=== PATIENT | female | born 2000 | race American Indian/Alaskan Native ===

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

== ENCOUNTER 2018-01-28 14:28 | Emergency (ER) | payer MEDICAID ==
[2018-01-28] MEDS ORDERED: REGLAN IV ONE (16:42)
[2018-01-28] MEDS ORDERED: NACL 0.9% 1000 ML 1,000 ML IV ONE (16:42)
--- NOTE | 2018-01-28 16:43 | Emergency Department Report ---
ED HPI - General Chief complaint: Nausea/Vomiting/Diarrhea Stated complaint: NIV 3 DAYS Time Seen by Provider: 01/28/18 16:42 Source: patient Mode of arrival: Ambulatory Limitations: No Limitations - History of Present Illness Initial comments: This is a 17-year-old female nontoxic, well nourished in appearance, no acute signs of distress presents to the ED with c/o of nausea, vomiting, and pelvic pain x1 day. Patient denies upper abdominal pain, vaginal bleeding, or back pain. Patient denies any vaginal discharge or foul odor. Patient denies any chest pain, shortness of breathe, fever, chills, headache, stiff neck, numbness, tingling. Patient denies any urinary symptoms. Patient denies any allergies or PMH. MD Complaint: abdominal pain (pelvic pain), other (nausea/vomiting) -: days(s) (1) Location: pelvis Radiation: none Severity: mild Severity scale (0 -10): 3 Quality: cramping, aching Consistency: constant Improves with: none Worsens with: none Associated symptoms: nausea/vomiting, abdominal pain (pelvic pain). denies: vaginal bleeding, vaginal discharge, dysuria, headache, vision changes, malaise , dysparuenia, rash, seizure, shortness of breath, syncope, weakness Vaginal bleeding: none :: Yes - Related Data Previous Rx's Medication Instructions Recorded Last Taken Type Amoxicillin [Amoxicillin TAB] 875 mg PO BID #20 tablet 03/25/17 Unknown Rx Ibuprofen [Motrin] 800 mg PO Q8HR PRN #15 tablet 03/25/17 Unknown Rx Acetaminophen 500 mg PO Q8H PRN #30 tablet 01/28/18 Unknown Rx Metoclopramide [Reglan] 10 mg PO TID PRN #30 tab 01/28/18 Unknown Rx 21/Iron Fu/Folic Acid 1 each PO DAILY #30 tablet 01/28/18 Unknown Rx [ Complete Caplet] Allergies Allergy/AdvReac Type Severity Reaction Status Date / Time No Known Allergies Allergy Unverified 01/28/18 15:16 ED Review of Systems ROS: Stated complaint: NIV 3 DAYS Other details as noted in HPI Constitutional: denies: chills, fever Eyes: denies: eye pain, eye discharge, vision change ENT: denies: ear pain, throat pain Respiratory: denies: cough, shortness of breath, wheezing Cardiovascular: denies: chest pain, palpitations Endocrine: no symptoms reported Gastrointestinal: abdominal pain (pelvic), nausea, vomiting. denies: diarrhea, constipation Genitourinary: denies: urgency, dysuria, discharge Musculoskeletal: denies: back pain, joint swelling, arthralgia Skin: denies: rash, lesions Neurological: denies: headache, weakness, paresthesias Psychiatric: denies: anxiety, depression Hematological/Lymphatic: denies: easy bleeding, easy bruising ED Past Medical Hx - Past Medical History Hx Asthma: Yes - Surgical History Past Surgical History?: No - Social History Smoking Status: Never Smoker Substance Use Type: None - Medications Home Medications: Home Medications Medication Instructions Recorded Confirmed Last Taken Type Amoxicillin [Amoxicillin TAB] 875 mg PO BID #20 tablet 03/25/17 Unknown Rx Ibuprofen [Motrin] 800 mg PO Q8HR PRN #15 tablet 03/25/17 Unknown Rx Acetaminophen 500 mg PO Q8H PRN #30 tablet 01/28/18 Unknown Rx Metoclopramide [Reglan] 10 mg PO TID PRN #30 tab 01/28/18 Unknown Rx 21/Iron Fu/Folic Acid 1 each PO DAILY #30 tablet 01/28/18 Unknown Rx [ Complete Caplet] ED Physical Exam - General Limitations: No Limitations General appearance: alert, in no apparent distress - Head Head exam: Present: atraumatic, normocephalic - Eye Eye exam: Present: normal appearance Pupils: Present: normal accommodation - ENT ENT exam: Present: normal exam, mucous membranes moist - Neck Neck exam: Present: normal inspection, full ROM. Absent: tenderness, meningismus, lymphadenopathy - Respiratory Respiratory exam: Present: normal lung sounds bilaterally. Absent: respiratory distress, wheezes, rales, rhonchi, stridor, chest wall tenderness, accessory muscle use, decreased breath sounds, prolonged expiratory - Cardiovascular Cardiovascular Exam: Present: regular rate, normal rhythm, normal heart sounds. Absent: irregular rhythm, systolic murmur, diastolic murmur, rubs, gallop - GI/Abdominal GI/Abdominal exam: Present: soft, normal bowel sounds. Absent: distended, tenderness, guarding, rebound, rigid, diminished bowel sounds - Expanded GI/Abdominal Exam Expanded GI/Abdominal exam: Absent: psoas sign, obturator sign, heel tap sign, Zepeda's sign, Rovsing's sign, tenderness at Mcburney's Point, ascites - Rectal Rectal exam: Present: deferred - Extremities Exam Extremities exam: Present: normal inspection, full ROM, normal capillary refill. Absent: tenderness - Back Exam Back exam: Present: normal inspection, full ROM. Absent: tenderness, CVA tenderness (R), CVA tenderness (L), muscle spasm, paraspinal tenderness, vertebral tenderness, rash noted - Neurological Exam Neurological exam: Present: alert, oriented X3, normal gait - Psychiatric Psychiatric exam: Present: normal affect, normal mood - Skin Skin exam: Present: warm, dry, intact, normal color. Absent: rash ED Course Vital Signs 01/28/18 15:16 Temperature 99.5 F Pulse Rate 91 H Respiratory 16 Rate Blood Pressure 110/66 O2 Sat by Pulse 100 Oximetry - Reevaluation(s) Reevaluation #1: 01/28/18 17:34 Patient is speaking in full sentences with no signs of distress noted. ED Medical Decision Making - Lab Data Result diagrams: 01/28/18 17:06 01/28/18 17:06 - Medical Decision Making This is a 17-year-old female presents with hyperemesis and pelvic pain. Patient is stable and was examined by me. Normal abdominal exam. US OB obtained and dictated by the radiologist with single normal IUP 6 weeks. Ua obtained. Quantative serum test obtained. Patient notified of the US report with no questions noted by the patient. No vaginal bleeding. Labs within normal limits. Patient received 1 D5NS and reglan which pateint stated feels much better. A by mouth challenge has been obtained and patient tolerated well with no nausea vomiting. Patient discharged with , Tylenol and Reglan. Patient was referred to Follow-up with a [facility] in 3-5 days or if symptoms worsen and continue return to emergency room as soon as possible. At time of discharge, the patient does not seem toxic or ill in appearance. No acute signs of distress noted. Patient agrees to discharge treatment plan of care. No further questions noted by the patient. Critical care attestation.: If time is entered above; I have spent that time in minutes in the direct care of this critically ill patient, excluding procedure time. ED Disposition Clinical Impression: Hyperemesis gravidarum, Pelvic pain during Disposition: TO HOME OR SELFCARE Is pt being admited?: No Does the pt Need Aspirin: No Condition: Stable Instructions: (ED), Hyperemesis Gravidarum (ED) Additional Instructions: Follow-up with a [facility] Ddoctor in 3-5 days or if symptoms worsen and continue return to emergency room as soon as possible. Prescriptions: Acetaminophen 500 mg PO Q8H PRN #30 tablet PRN Reason: Pain, Moderate (4-6) Metoclopramide [Reglan] 10 mg PO TID PRN #30 tab PRN Reason: Nausea 21/Iron Fu/Folic Acid [ Complete Caplet] 1 each PO DAILY #30 tablet Referrals: PRIMARY CAREMD [Primary Care Provider] - 3-5 Days WASHINGTON SAUL MD [Staff Physician] - 3-5 Days [facility] [Provider Group] - 3-5 Days Forms: Work/School Release Form(ED)
[2018-01-28 17:24] LABS: Basophils % (Auto) 0.3 % (0.0-1.8); Eosinophils % (Auto) 0.3 % (0.0-4.3); Hemoglobin 12.6 gm/dl (10.1-14.3); Lymphocytes # (Auto) 2.2 K/mm3 (1.2-5.4); Lymphocytes % (Auto) 26.2 % (13.4-35.0); Mean Corpuscular HGB Conc 34 % (30-34); Mean Corpuscular Hemoglobin 28 pg (28-32); Mean Corpuscular Volume 83 fl (79-97); Monocytes # (Auto) 0.6 K/mm3 (0.0-0.8); Platelet Count 301 K/mm3 (140-440); Red Blood Count 4.47 M/mm3 (3.65-5.03); Red Cell Distribution Width 15.1 % (13.2-15.2)
[2018-01-28 17:35] LABS: BUN/Creatinine Ratio 13; Blood Urea Nitrogen 8 mg/dL (7-17); Calcium 9.8 mg/dL (8.4-10.2); Hemolysis Index 2
[2018-01-28] MEDS ORDERED: D5NS 1,000 ML IV ONE (17:39)
[2018-01-28 20:05] LABS: Bacteria,Urine 1+ /HPF (Negative); Bilirubin,Urine NEG (Negative); Blood,Urine NEG (Negative); Color,Urine Yellow (Yellow); Mucus,Urine FEW /HPF; Urobilinogen,Urine < 2.0 mg/dL (<2.0)
--- NOTE | 2018-01-28 20:48 | Ultrasound Report ---
FINAL REPORT PROCEDURE: US OB < = 14 WEEKS FETUS TECHNIQUE: Real-time transabdominal sonography of the uterus, placenta, amniotic fluid, adnexa, and fetus was performed with image documentation. Measurements were obtained to determine age/size. M-mode Doppler was used to document heartbeat. CPT 16854 HISTORY: abd pain COMPARISON: No prior studies are available for comparison. FINDINGS: CRL: 15.2 mm, which corresponds to a gestational age of: 7 weeks, 6 days. Yolk Sac: Normal. Embryonic Cardiac Activity: 166 beats per minute, regular Gestational Sac: Normal. Amniotic fluid: Normal. Cervix: Normal. Right Ovary: Normal. Left Ovary: Normal. Estimated delivery date: 09/08/2018 Uterus and adnexa: Normal. IMPRESSION: Single live intrauterine gestation at approximately 8 weeks and 3 days. EDC by US 09/08/2018
--- NOTE | 2018-01-28 20:49 | Ultrasound Report ---
FINAL REPORT PROCEDURE: US OB TRANSVAGINAL TECHNIQUE: Real-time transvaginal sonography of the uterus, placenta, amniotic fluid, adnexa, and fetus was performed with image documentation. Measurements were obtained to determine age/size. M-mode Doppler was used to document heartbeat. CPT 52168 HISTORY: abd pain COMPARISON: No prior studies are available for comparison. FINDINGS: CRL: 15.2 mm, which corresponds to a gestational age of: 7 weeks, 6 days. Yolk Sac: Normal. Embryonic Cardiac Activity: 166 beats per minute, regular Gestational Sac: Normal. Amniotic fluid: Normal. Cervix: Normal. Right Ovary: Normal. Left Ovary: Normal. Estimated delivery date: 09/08/2018 Uterus and adnexa: Normal. IMPRESSION: Single live intrauterine gestation at approximately 8 weeks and 3 days. EDC by US 09/08/2018
[2018-01-28 20:50] VITALS: BP 97/58
== END 2018-01-28 22:00 | disposition home or self-care (01) ==
LOC: ED 14:28
DX: O21.0 Mild hyperemesis gravidarum (principal); O99.511 Diseases of the respiratory system complicating pregnancy, first trimester; J45.909 Unspecified asthma, uncomplicated; Z3A.01 Less than 8 weeks gestation of pregnancy
CPT/HCPCS: 36415; 76801; 76817; 80048; 81001; 84702; 85025; 96361; 96365; 96375; 99284; J2765; J7030; J7042

== ENCOUNTER 2018-02-08 23:39 | Inpatient (IN) | payer MEDICAID ==
[2018-02-09] MEDS ORDERED: PROVENTIL IH ONE ×4 (02:11→20:46)
[2018-02-09 02:49] LABS: Basophils % (Auto) 0.3 % (0.0-1.8); Eosinophils # (Auto) 0.5 K/mm3 (0.0-0.4); Eosinophils % (Auto) 4.2 % (0.0-4.3); Hematocrit 40.7 % (30.3-42.9); Hemoglobin 14.3 gm/dl (10.1-14.3); Lymphocytes % (Auto) 27.8 % (13.4-35.0); Mean Corpuscular HGB Conc 35 % (30-34); Mean Corpuscular Hemoglobin 28 pg (28-32); Mean Corpuscular Volume 79 fl (79-97); Monocytes # (Auto) 1.1 K/mm3 (0.0-0.8); Monocytes % (Auto) 9.7 % (0.0-7.3); Platelet Count 250 K/mm3 (140-440); Red Blood Count 5.15 M/mm3 (3.65-5.03); Red Cell Distribution Width 15.4 % (13.2-15.2)
[2018-02-09 03:05] LABS: BUN/Creatinine Ratio 20; Blood Urea Nitrogen 16 mg/dL (7-17); Calcium 10.2 mg/dL (8.4-10.2); Hemolysis Index 10
[2018-02-09] MEDS ORDERED: NACL 0.9% 1000 ML 1,000 ML IV ONE ×3 (03:34→10:18)
[2018-02-09] MEDS ORDERED: REGLAN IV ONE (03:43)
--- NOTE | 2018-02-09 03:49 | Emergency Department Report ---
HPI - General Chief Complaint: Nausea/Vomiting/Diarrhea Time Seen by Provider: 02/09/18 03:33 - HPI HPI: Room 3 The patient is a 17-year-old female presenting with a chief complaint of cough, asthma, nausea and vomiting. Patient is approximately 8 weeks and states for 1.5 week she's had pain across top and lower abdomen. Patient denies vaginal bleeding. The patient states for the past 2-3 weeks she has been suffering from her asthma as well as a cough that is productive of greenish yellow sputum. Patient complains of nausea and vomiting as well as dizziness with standing. Location: [See above] Duration: 2-3 weeks Quality: Pain, asthma, cough Severity: Moderate Modifying factors: [see above] Context: [see above] Mode of transportation: [not driving] ED Past Medical Hx - Past Medical History Hx Asthma: Yes - Surgical History Past Surgical History?: No - Family History Family history: no significant - Social History Smoking Status: Never Smoker Substance Use Type: None - Medications Home Medications: Home Medications Medication Instructions Recorded Confirmed Last Taken Type Amoxicillin [Amoxicillin TAB] 875 mg PO BID #20 tablet 03/25/17 02/09/18 Unknown Rx Ibuprofen [Motrin] 800 mg PO Q8HR PRN #15 tablet 03/25/17 02/09/18 Unknown Rx Acetaminophen 500 mg PO Q8H PRN #30 tablet 01/28/18 02/09/18 Unknown Rx Metoclopramide [Reglan] 10 mg PO TID PRN #30 tab 01/28/18 02/09/18 Unknown Rx 21/Iron Fu/Folic Acid 1 each PO DAILY #30 tablet 01/28/18 02/09/18 Unknown Rx [ Complete Caplet] ALBUTEROL Inhaler [Proair] 2 puff IH QID PRN #1 inhalation 02/09/18 Unknown Rx Azithromycin [Zithromax Z-RICARDO] 0 mg PO DAILY #6 tab 02/09/18 Unknown Rx Metoclopramide [Reglan] 10 mg PO TID PRN #30 tab 02/09/18 Unknown Rx ED Review of Systems ROS: Stated complaint: AZALIA/NV/8WKS Other details as noted in HPI Constitutional: no symptoms reported Eyes: denies: eye pain ENT: denies: throat pain Respiratory: cough, wheezing Cardiovascular: denies: chest pain Endocrine: no symptoms reported Gastrointestinal: abdominal pain, nausea, vomiting Genitourinary: denies: dysuria Musculoskeletal: denies: back pain Neurological: denies: headache Physical Exam - Physical Exam Vital Signs: Vital Signs 02/09/18 02/09/18 01:57 02:50 Temperature 99 F 98.7 F Pulse Rate 104 H 105 H Respiratory 18 28 H Rate Blood Pressure 112/78 Blood Pressure 105/76 [Left] O2 Sat by Pulse 100 100 Oximetry Physical Exam: GENERAL: The patient is well-developed well-nourished female lying on stretcher not appearing to be in acute distress. [] HEENT: Normocephalic. Atraumatic. Extraocular motions are intact. Patient has moist mucous membranes. NECK: Supple. Trachea midline CHEST/LUNGS: Occasional wheezing. There is no respiratory distress noted. HEART/CARDIOVASCULAR: Regular. There is no tachycardia. There is no gallop rub or murmur. ABDOMEN: Abdomen is soft, with mild discomfort to palpation in the midepigastric region. Patient has normal bowel sounds. There is no abdominal distention. SKIN: There is no rash. There is no edema. There is no diaphoresis. NEURO: The patient is awake, alert, and oriented. The patient is cooperative. The patient has normal speech MUSCULOSKELETAL: There is no evidence of acute injury. ED Course Vital Signs 02/09/18 02/09/18 01:57 02:50 Temperature 99 F 98.7 F Pulse Rate 104 H 105 H Respiratory 18 28 H Rate Blood Pressure 112/78 Blood Pressure 105/76 [Left] O2 Sat by Pulse 100 100 Oximetry ED Medical Decision Making - Lab Data Result diagrams: 02/09/18 02:26 02/09/18 08:37 - EKG Data -: EKG Interpreted by Me EKG shows normal: sinus rhythm Rate: normal - EKG Data When compared to previous EKG there are: previous EKG unavailable Interpretation: other (no ischemic changes seen) - Differential Diagnosis asthma exacerbation, threatened , bronchitis, hyperemesis gravidaru Critical care attestation.: If time is entered above; I have spent that time in minutes in the direct care of this critically ill patient, excluding procedure time. ED Disposition Clinical Impression: Acute bronchitis, Asthma exacerbation, Hyperemesis gravidarum Disposition: - OP ADMIT IP TO THIS HOSP Is pt being admited?: Yes Does the pt Need Aspirin: No Condition: Fair
[2018-02-09] MEDS ORDERED: K-DUR PO ONE ×2 (03:50→09:28)
--- NOTE | 2018-02-09 07:18 | Ultrasound Report ---
FINAL REPORT EXAM: US OB < = 14 WEEKS FETUS HISTORY: abdominal pain COMPARISONS: 01/28/2018 FINDINGS: Transabdominal grayscale and M-mode first-trimester ultrasound There is a single living intrauterine with recorded cardiac activity of 178 beats per minute and crown-rump length of 28 millimeters. Estimated gestational age is 9 weeks 3 days. The normal appearing yolk sac. No perigestational hemorrhage. No significant free fluid in the pelvis. The ovaries are best visualized on transvaginal ultrasound. IMPRESSION: Single living intrauterine without evident complication and estimated gestational age of 9 weeks 3 days, as above.
--- NOTE | 2018-02-09 07:19 | Ultrasound Report ---
FINAL REPORT EXAM: US OB TRANSVAGINAL HISTORY: abdominal pain COMPARISONS: 01/28/2018 FINDINGS: Transvaginal grayscale and M-mode first-trimester ultrasound There is a single living intrauterine with recorded cardiac activity of 178 beats per minute and crown-rump length of 28 millimeters. Estimated gestational age is 9 weeks 3 days. There is a normal appearing yolk sac. No perigestational hemorrhage. No significant free fluid in the pelvis. The ovaries are sonographically unremarkable and measure 1.7 x 1 x 1.5 cm on the right and 2.6 X 1.4 x 1.9 cm on the left. IMPRESSION: Single living intrauterine without evident complication and estimated gestational age of 9 weeks 3 days, as above.
[2018-02-09 07:39] LABS: Bacteria,Urine 1+ /HPF (Negative); Bilirubin,Urine NEG (Negative); Blood,Urine NEG (Negative); Color,Urine Amber (Yellow); Mucus,Urine 3+ /HPF
[2018-02-09 09:19] LABS: BUN/Creatinine Ratio 23; Blood Urea Nitrogen 14 mg/dL (7-17); Calcium 9.2 mg/dL (8.4-10.2); Hemolysis Index 5
[2018-02-09] MEDS ORDERED: ROCEPHIN/NS 1 GM/50 ML 1 GM/50 ML BAG IV ONE (09:41)
[2018-02-09] MEDS ORDERED: D5W/NS W/KCL 20MEQ 20 MEQ/1,000 ML BAG IV SCH (10:00)
[2018-02-09] MEDS ORDERED: NACL 0.9% 1000 ML 1,000 ML ONE (10:09)
[2018-02-09 10:47] LABS: Albumin 3.9 g/dL (3.9-5); Bilirubin,Direct 0.3 mg/dL (0-0.2)
[2018-02-09 11:30] LABS: INR 1.4 (0.87-1.13)
--- NOTE | 2018-02-09 11:36 | XRay Report ---
FINAL REPORT EXAM: XR CHEST 1V AP HISTORY: cough TECHNIQUE: Frontal chest radiograph. PRIORS: None. FINDINGS: The cardiomediastinal silhouette is normal. No focal consolidation. No pleural effusion. No pneumothorax. No acute osseous abnormality. IMPRESSION: No acute cardiopulmonary process.
[2018-02-09] MEDS ORDERED: D5LR 1,000 ML IV SCH ×2 (12:00)
--- NOTE | 2018-02-09 12:14 | Event Note ---
Date: 02/09/18 This is a patient that was seen by Dr. Rock during the night. She has residual concerns to include hypokalemia, low CO2 and a pending ultrasound. She is being followed by light cycle [facility] PR[facility] OPERATOR. The patient is fairly reticent to give much history when I speak to her. She is not complaining of any acute pain. She was noted to have a somewhat low blood pressure. She was given additional fluids. I evaluated her further. Physical exam Patient's blood pressure is now 113/67 approximately. She is in no acute distress. Respirations are unlabored Neurological exam is grossly intact Abdomen is soft and nontender Diagnostic studies Patient was found to have a significant metabolic acidosis. I had a blood gas performed. It shows well compensated metabolic acidosis/respiratory compensation. Her CO2 was a point lower. Her potassium was a point lower. I ordered a magnesium level. The lab has been informed. Patient was given additional IV fluid. Her lactic acid level was normal. She does have ketones in her urine. Therefore she does need dextrose-containing solution. She is not actively vomiting anymore. She tolerated additional potassium. Her potassium deficit may be large considering her acidosis. Therefore for this and several reasons she is admitted for further care and evaluation by [facility]. I spoken to the nurse practitioner. She is admitted to Dr. Shipman service. Ceftriaxone was ordered. Diagnostic impressions Hyperemesis gravidarum Hypokalemia Metabolic acidosis UTI Plan further care per [facility] PR[facility] OPERATOR. Patient was admitted to the floor in stable condition.
--- NOTE | 2018-02-09 15:26 | Event Note ---
Date: 02/09/18 Patient is a 17 year old , LMP?, who is at 9 weeks gestation who presented to the ER last night complaining of having nausea and vomiting for 2 weeks and inability to tolerate PO intake, and persistent cough with yellow sputum x 2 weeks. She said that she felt chills, but her temp in the ER was normal. She said that she has a history of asthma but can't recall the last time she had an attack. She has not been taking any medication for the asthma. In the ER, her BP 112/78, HR 104, O2 Sat 100% RA, Temp was 99F, potassium 2.9. K = was given. Labs showed metabolic acidosis. CXR was negative. She was given zithromax. sono showed live SIUP. Exam:Chest clear B/L. Assessment/Plan: SIUP at 9 weeks with: .Hyperemesis. Will contiue IV hyrdation, NPO, Zofran. .Hypokalemia. K-emily was given. current K+ is 3.2. Will give 2 more doses and repeat level in AM. .Metabolic acidosis. Will continue electrolyte replacement as needed. Will continue albuterol nebs treatment Q8 hrs. .Respiratory illness, possible bronchitis vs. walking pneumonia. Zosyn Q8 hrs. .UTI. Will F/U urine cx. .
[2018-02-09] MEDS: PHENERGAN PR SCH (18:00)
[2018-02-09] MEDS: D5NS 1,000 ML IV SCH (22:04)
[2018-02-09] MEDS: ZOSYN/NS 3.375GM/50ML 3.375 GM/50 ML BAG IV SCH (22:04)
[2018-02-10] MEDS: PHENERGAN PR SCH ×4 (01:11→18:39)
[2018-02-10 05:24] LABS: Amphetamine Screen,Urine PRESUMPTIVE NEGATIVE; Benzodiazepines Screen,Urine PRESUMPTIVE NEGATIVE; Cannabinoid Screen,Urine PRESUMPTIVE NEGATIVE; Cocaine Screen,Urine PRESUMPTIVE NEGATIVE; Methadone Screen,Urine PRESUMPTIVE NEGATIVE; Opiate Screen,Urine PRESUMPTIVE NEGATIVE
[2018-02-10] MEDS: ZOSYN/NS 3.375GM/50ML 3.375 GM/50 ML BAG IV SCH ×3 (06:35→22:11)
[2018-02-10] MEDS: PROVENTIL IH SCH ×2 (08:44→16:59)
[2018-02-10] MEDS: D5NS 1,000 ML IV SCH ×2 (10:27→22:15)
[2018-02-10] MEDS: ZOFRAN IV PRN ×2 (10:36→16:34)
[2018-02-10] MEDS: PRENATAL VITAMIN PO SCH (10:37)
[2018-02-10 11:28] LABS: Alanine Aminotransferase 27 units/L (7-56); Albumin 3.3 g/dL (3.9-5); BUN/Creatinine Ratio 7; Blood Urea Nitrogen 5 mg/dL (7-17); Calcium 8.6 mg/dL (8.4-10.2); Hemolysis Index 1
--- NOTE | 2018-02-10 12:34 | History and Physical Report ---
History of Present Illness Date of examination: 02/10/18 Date of admission: 02/09/18 09:41 Chief complaint: SIUP at 9 weeks, hyperemesis, hypokalemia, upper resp illness. History of present illness: Patient was admitted for observation yesterday. She is a 17 year old who at 9 weeks gestation. She presented to the ER with nausea, vomiting with inability to keep PO intake, productive cough x 2 weeks. Her labs showed metabolic acidosis, low K+, ketones and UTI. She was treated with zithromax, albuterol, reglan, potassium replacement, IV hydration. Zosyn was added. She was kept for observation. She is feeling better but is still vomiting when she tries to drink or eat. Potassium is 2.8 today. Past History Past Medical History: asthma Past Surgical History: no surgical history Medications and Allergies Allergies Allergy/AdvReac Type Severity Reaction Status Date / Time No Known Allergies Allergy Unverified 01/28/18 15:16 Home Medications Medication Instructions Recorded Confirmed Last Taken Type Amoxicillin [Amoxicillin TAB] 875 mg PO BID #20 tablet 03/25/17 02/09/18 Unknown Rx Ibuprofen [Motrin] 800 mg PO Q8HR PRN #15 tablet 03/25/17 02/09/18 Unknown Rx Acetaminophen 500 mg PO Q8H PRN #30 tablet 01/28/18 02/09/18 Unknown Rx Metoclopramide [Reglan] 10 mg PO TID PRN #30 tab 01/28/18 02/09/18 Unknown Rx 21/Iron Fu/Folic Acid 1 each PO DAILY #30 tablet 01/28/18 02/09/18 Unknown Rx [ Complete Caplet] ALBUTEROL Inhaler [Proair] 2 puff IH QID PRN #1 inhalation 02/09/18 Unknown Rx Azithromycin [Zithromax Z-RICRADO] 0 mg PO DAILY #6 tab 02/09/18 Unknown Rx Metoclopramide [Reglan] 10 mg PO TID PRN #30 tab 02/09/18 Unknown Rx Active Meds: Active Medications Albuterol (Proventil) 2.5 mg IH Q8HRT [facility] Last Admin: 02/10/18 08:44 Dose: 2.5 mg Dextrose/Sodium Chloride (D5ns) 1,000 mls @ 150 mls/hr IV DIRECT MACY Last Admin: 02/10/18 10:27 Dose: 150 mls/hr Piperacillin Sod/Tazobactam Sod (Zosyn/Ns 3.375gm/50ml) 3.375 gm in 50 mls @ 100 mls/hr IV Q8HR [facility]; Protocol Last Admin: 02/10/18 06:35 Dose: 100 mls/hr Potassium Chloride (Kcl 10meq/100ml) 10 meq in 100 mls @ 100 mls/hr IV Q1H MACY Stop: 02/10/18 16:59 Multivitamins/Iron/Calcium ( Vitamin) 1 each PO QDAY [facility] Last Admin: 02/10/18 10:37 Dose: Not Given Ondansetron HCl (Zofran) 4 mg IV Q6H PRN PRN Reason: N/V unrelieved by Ruy Last Admin: 02/10/18 10:36 Dose: 4 mg Promethazine HCl (Phenergan) 25 mg RI Q6H [facility] Last Admin: 02/10/18 06:00 Dose: Not Given - Vital Signs Vital signs: Vital Signs Temp Pulse Resp BP Pulse Ox 99 F 104 H 18 112/78 100 02/09/18 01:57 02/09/18 01:57 02/09/18 01:57 02/09/18 01:57 02/09/18 01:57 Temp Pulse Resp BP Pulse Ox 98.6 F 92 H 12 114/78 100 02/10/18 07:14 02/10/18 08:48 02/10/18 08:48 02/10/18 07:14 02/09/18 16:11 - Physical Exam Cardiovascular: Normal S1, Normal S2 Lungs: Positive: Clear to auscultation Vulva: both: normal Deep Tendon Reflex Grade: Normal +2 Results Result Diagrams: 02/09/18 02:26 02/10/18 10:23 Abnormal lab results 02/10/18 Range/Units 10:23 Potassium 2.8 L* (3.6-5.0) mmol/L Chloride 107.5 H (98-107) mmol/L Carbon Dioxide 15 L (22-30) mmol/L BUN 5 L (7-17) mg/dL Glucose 109 H (65-100) mg/dL Total Bilirubin 1.60 H (0.1-1.2) mg/dL AST 42 H (5-40) units/L Total Protein 5.9 L (6.3-8.2) g/dL Albumin 3.3 L (3.9-5) g/dL All other labs normal. Ultrasound: report reviewed Chest x-ray: report reviewed Assessment and Plan - Patient Problems (1) 9 weeks gestation of Current Visit: Yes Status: Acute (2) Hyperemesis gravidarum Current Visit: Yes Status: Acute Plan to address problem: Continue IV zofran, IV fluids. (3) Hypokalemia Current Visit: Yes Status: Acute Plan to address problem: K-emily ordered. will do potassium level tonight. (4) Respiratory illness Current Visit: Yes Status: Acute Plan to address problem: Will continue zosyn Q8 hrs and albuterol nebulizer. Blood Cx is negative on day#1. Will F/U result tomorrow. (5) UTI (urinary tract infection) Current Visit: Yes Status: Acute Plan to address problem: F/U urine Cx. (6) Asthma exacerbation Current Visit: Yes Status: Acute Plan to address problem: Continue albuterol nebs.
[2018-02-10] MEDS: KCL 10MEQ/100ML 10 MEQ/100 ML BAG IV SCH ×4 (13:11→18:39)
[2018-02-10] MEDS: PEPCID IV SCH (16:59)
[2018-02-11] LABS: Alanine Aminotransferase 28 units/L (7-56); Albumin 3.5 g/dL (3.9-5); BUN/Creatinine Ratio 5; Blood Urea Nitrogen 4 mg/dL (7-17); Calcium 8.7 mg/dL (8.4-10.2); Hemolysis Index 8
[2018-02-11] MEDS: ZOFRAN IV PRN ×3 (00:01→11:47)
[2018-02-11] MEDS: KCL 10MEQ/100ML 10 MEQ/100 ML BAG IV SCH ×4 (01:53→05:10)
[2018-02-11] MEDS: PHENERGAN PR SCH ×3 (06:00→11:45)
[2018-02-11] MEDS: ZOSYN/NS 3.375GM/50ML 3.375 GM/50 ML BAG IV SCH ×3 (06:24→22:00)
[2018-02-11 08:21] LABS: Alanine Aminotransferase 23 units/L (7-56); Albumin 3.3 g/dL (3.9-5); BUN/Creatinine Ratio 4; Blood Urea Nitrogen 3 mg/dL (7-17); Calcium 8.4 mg/dL (8.4-10.2); Hemolysis Index 7
[2018-02-11] MEDS: PEPCID IV SCH (09:48)
[2018-02-11] MEDS: PRENATAL VITAMIN PO SCH (09:48)
[2018-02-11] MEDS: PROVENTIL IH SCH ×4 (10:05→16:03)
[2018-02-11] MEDS: D5NS 1,000 ML IV SCH (13:23)
--- NOTE | 2018-02-11 13:24 | Progress Note ---
Assessment and Plan - Patient Problems (1) Hyperemesis gravidarum Current Visit: Yes Status: Acute Plan to address problem: Continue Zofran. Will call pharmacy to see if banana bag available. (2) Hypokalemia Current Visit: Yes Status: Acute Plan to address problem: K = 3.2 this morning. Give K-dur 40 mEq. Recheck potassium in PM. Per nurse patient unable to tolerate PO will give KCl added to 1L IVF. (3) Trichimoniasis Current Visit: Yes Status: Acute Plan to address problem: Will treat with Flagyl. Subjective - Subjective Interval history: Hospital Day #2 17yo 9 week gestation with hyperemsis gravidarum. Today is vomiting food colored fluid and very little solid food. She denies vaginal bleeding. Overview of her chart states she has been non-compliant with care and untreated for Trichimonas. Ultrasound 01/24 reveals 7 week IUP in office. Objective - Vital Signs Vital Signs: Vital Signs - 12hr 02/11/18 02/11/18 02/11/18 01:50 04:50 08:58 Temperature 98.5 F 98.6 F 98.7 F Pulse Rate 81 84 80 Pulse Rate [ Anterior Bilateral] Respiratory 18 16 20 Rate Respiratory Rate [Anterior Bilateral] Blood Pressure 92/42 Blood Pressure 90/57 103/60 [Left] O2 Sat by Pulse 99 Oximetry 02/11/18 02/11/18 10:06 10:21 Temperature Pulse Rate Pulse Rate [ 81 84 Anterior Bilateral] Respiratory Rate Respiratory 18 18 Rate [Anterior Bilateral] Blood Pressure Blood Pressure [Left] O2 Sat by Pulse Oximetry - Labs Labs: Abnormal Labs 02/09/18 02/09/18 02/09/18 02:26 02:26 02:26 RBC 5.15 H MCHC 35 H RDW 15.4 H [place] % (Auto) 9.7 H [place] # 1.1 H Eos # 0.5 H PT INR D-Dimer POC ABG pCO2 POC ABG pO2 VBG pH Sodium 135 L Potassium 3.2 L Chloride 94.1 L Carbon Dioxide 14 L BUN Creatinine Glucose Total Bilirubin Direct Bilirubin AST Total Protein Albumin HCG, Quant 90287 H Urine WBC (Auto) U Epithel Cells (Auto) 02/09/18 02/09/18 02/09/18 06:58 08:37 08:37 RBC MCHC RDW [place] % (Auto) Storey # Eos # PT INR D-Dimer POC ABG pCO2 POC ABG pO2 VBG pH 7.250 L Sodium 136 L Potassium 2.9 L* Chloride 96.4 L Carbon Dioxide 13 L BUN Creatinine 0.6 L Glucose Total Bilirubin Direct Bilirubin AST Total Protein Albumin HCG, Quant Urine WBC (Auto) 34.0 H U Epithel Cells (Auto) 25.0 H 02/09/18 02/09/18 02/09/18 09:40 09:40 09:52 RBC MCHC RDW [place] % (Auto) Storey # Eos # PT 17.7 H INR 1.40 H D-Dimer POC ABG pCO2 20.8 L POC ABG pO2 117 H VBG pH Sodium Potassium Chloride Carbon Dioxide BUN Creatinine Glucose Total Bilirubin Direct Bilirubin 0.3 H AST Total Protein Albumin HCG, Quant Urine WBC (Auto) U Epithel Cells (Auto) 02/10/18 02/10/18 02/10/18 10:23 17:53 23:10 RBC MCHC RDW [place] % (Auto) Storey # Eos # PT INR D-Dimer 514.4 H POC ABG pCO2 POC ABG pO2 VBG pH Sodium 135 L Potassium 2.8 L* 2.8 L* Chloride 107.5 H Carbon Dioxide 15 L 17 L BUN 5 L 4 L Creatinine Glucose 109 H Total Bilirubin 1.60 H Direct Bilirubin AST 42 H Total Protein 5.9 L 5.7 L Albumin 3.3 L 3.5 L HCG, Quant Urine WBC (Auto) U Epithel Cells (Auto) 02/11/18 07:31 RBC MCHC RDW [place] % (Auto) Storey # Eos # PT INR D-Dimer POC ABG pCO2 POC ABG pO2 VBG pH Sodium 136 L Potassium 3.3 L Chloride 108.5 H Carbon Dioxide 14 L BUN 3 L Creatinine Glucose Total Bilirubin Direct Bilirubin AST Total Protein 5.9 L Albumin 3.3 L HCG, Quant Urine WBC (Auto) U Epithel Cells (Auto) Laboratory Results - last 24 hr 02/10/18 02/10/18 02/10/18 14:30 17:53 23:10 D-Dimer 514.4 H Sodium 135 L Potassium 2.8 L* Chloride 103.4 Carbon Dioxide 17 L Anion Gap 17 BUN 4 L Creatinine 0.8 Estimated GFR > 60 BUN/Creatinine Ratio 5 Glucose 95 Calcium 8.7 Total Bilirubin 1.10 AST 38 ALT 28 Alkaline Phosphatase 80 Total Protein 5.7 L Albumin 3.5 L Albumin/Globulin Ratio 1.6 Urine Ketones 20 02/10/18 02/11/18 23:41 07:31 D-Dimer Sodium 136 L Potassium 3.3 L Chloride 108.5 H Carbon Dioxide 14 L Anion Gap 17 BUN 3 L Creatinine 0.8 Estimated GFR > 60 BUN/Creatinine Ratio 4 Glucose 84 Calcium 8.4 Total Bilirubin 1.10 AST 29 ALT 23 Alkaline Phosphatase 74 Total Protein 5.9 L Albumin 3.3 L Albumin/Globulin Ratio 1.3 Urine Ketones Neg
[2018-02-11] MEDS ORDERED: K-DUR PO NR (13:30)
[2018-02-11] MEDS ORDERED: K-DUR PO ONE (16:53)
[2018-02-11] MEDS ORDERED: D5W/0.45% NACL/KCL 20 MEQ 20 MEQ/1,000 ML BAG IV SCH (18:00)
[2018-02-11 18:59] LABS: BUN/Creatinine Ratio 3; Blood Urea Nitrogen 2 mg/dL (7-17); Calcium 8.7 mg/dL (8.4-10.2); Hemolysis Index 1
[2018-02-11] MEDS ORDERED: ROBITUSSIN PO PRN (19:59)
[2018-02-11] MEDS ORDERED: VITAMIN B-1 100 MG, FOLVITE 1 MG, INFUVITE 10 ML in NACL 0.9% 1000 ML 1,000 ML IV ONE (22:00)
[2018-02-11] MEDS ORDERED: TYLENOL PO PRN (23:26)
[2018-02-11] MEDS ORDERED: BENADRYL PO PRN (23:29)
[2018-02-12] MEDS: ZOSYN/NS 3.375GM/50ML 3.375 GM/50 ML BAG IV SCH (06:10)
[2018-02-12] MEDS: PROVENTIL IH SCH (08:20)
--- NOTE | 2018-02-12 09:13 | Progress Note ---
Assessment and Plan A: 17 y/o with N/V of Issues -Hx of Asthma -Hypokalemia -NO reported weight loss -No fever or chills -Tolerating oral intake P: -D/C Zosyn -Oral KCL 40 meq PO now -Complete IV KCL and repeat serum K later this PM -Start oral anti-emetics and saline lock -Discussed Diclegis on outpatient basis -Possible D/C if serum K acceptable - Patient Problems (1) 9 weeks gestation of Current Visit: Yes Status: Acute (2) Nausea and vomiting during Current Visit: Yes Status: Acute Subjective - Subjective Date of service: 02/12/18 Principal diagnosis: t Interval history: Patient seen and examined. She is stable. She has an almost flat effect, denies depression, suicidal thoughts or ideation. She denies any issues at home and wants to know when she can go - "I feel fine, all I need is my asthma meds". During my ~ 30 min in her room, she had no episode of nausea or vomiting, her bowl has no vomit and she ate some of her eggs and drank some juice She has a hx of asthma, denies fever, chills. Has dry non productive cough. Denies hx of smoking She is still on Zosyn Patient reports: new complaints, no loss of fluid, no vaginal bleeding, no movement normal, no contractions Objective - Vital Signs Vital Signs: Vital Signs - 12hr 02/12/18 00:00 Temperature 98.2 F Pulse Rate 85 Respiratory 18 Rate Blood Pressure 120/74 [Left] - Exam Cardiovascular: Regular rate, Normal S1, Normal S2 Lungs: Clear to auscultation, Normal air movement Abdomen: Present: normal appearance, soft. Absent: tenderness, guarding - Labs Labs: Abnormal Labs 02/09/18 02/09/18 02/09/18 02:26 02:26 02:26 RBC 5.15 H MCHC 35 H RDW 15.4 H [place] % (Auto) 9.7 H [place] # 1.1 H Eos # 0.5 H PT INR D-Dimer POC ABG pCO2 POC ABG pO2 VBG pH Sodium 135 L Potassium 3.2 L Chloride 94.1 L Carbon Dioxide 14 L BUN Creatinine Glucose Total Bilirubin Direct Bilirubin AST Total Protein Albumin HCG, Quant 74807 H Urine WBC (Auto) U Epithel Cells (Auto) 02/09/18 02/09/18 02/09/18 06:58 08:37 08:37 RBC MCHC RDW [place] % (Auto) [place] # Eos # PT INR D-Dimer POC ABG pCO2 POC ABG pO2 VBG pH 7.250 L Sodium 136 L Potassium 2.9 L* Chloride 96.4 L Carbon Dioxide 13 L BUN Creatinine 0.6 L Glucose Total Bilirubin Direct Bilirubin AST Total Protein Albumin HCG, Quant Urine WBC (Auto) 34.0 H U Epithel Cells (Auto) 25.0 H 02/09/18 02/09/18 02/09/18 09:40 09:40 09:52 RBC MCHC RDW [place] % (Auto) [place] # Eos # PT 17.7 H INR 1.40 H D-Dimer POC ABG pCO2 20.8 L POC ABG pO2 117 H VBG pH Sodium Potassium Chloride Carbon Dioxide BUN Creatinine Glucose Total Bilirubin Direct Bilirubin 0.3 H AST Total Protein Albumin HCG, Quant Urine WBC (Auto) U Epithel Cells (Auto) 02/10/18 02/10/18 02/10/18 10:23 17:53 23:10 RBC MCHC RDW [place] % (Auto) [place] # Eos # PT INR D-Dimer 514.4 H POC ABG pCO2 POC ABG pO2 VBG pH Sodium 135 L Potassium 2.8 L* 2.8 L* Chloride 107.5 H Carbon Dioxide 15 L 17 L BUN 5 L 4 L Creatinine Glucose 109 H Total Bilirubin 1.60 H Direct Bilirubin AST 42 H Total Protein 5.9 L 5.7 L Albumin 3.3 L 3.5 L HCG, Quant Urine WBC (Auto) U Epithel Cells (Auto) 02/11/18 02/11/18 07:31 18:08 RBC MCHC RDW [place] % (Auto) [place] # Eos # PT INR D-Dimer POC ABG pCO2 POC ABG pO2 VBG pH Sodium 136 L Potassium 3.3 L 2.9 L* Chloride 108.5 H 109.9 H Carbon Dioxide 14 L 15 L BUN 3 L 2 L Creatinine Glucose 112 H Total Bilirubin Direct Bilirubin AST Total Protein 5.9 L Albumin 3.3 L HCG, Quant Urine WBC (Auto) U Epithel Cells (Auto) Laboratory Results - last 24 hr 02/11/18 18:08 Sodium 138 Potassium 2.9 L* Chloride 109.9 H Carbon Dioxide 15 L Anion Gap 16 BUN 2 L Creatinine 0.8 Estimated GFR > 60 BUN/Creatinine Ratio 3 Glucose 112 H Calcium 8.7
[2018-02-12] MEDS ORDERED: PROAIR IH PRN (09:17)
[2018-02-12] MEDS ORDERED: K-DUR PO ONE (10:00)
[2018-02-12] MEDS ORDERED: ZOFRAN ODT PO PRN (10:00)
[2018-02-12] MEDS ORDERED: PROVENTIL IH PRN (10:17)
[2018-02-12] MEDS: PRENATAL VITAMIN PO SCH (10:19)
[2018-02-12 15:20] LABS: BUN/Creatinine Ratio 6; Blood Urea Nitrogen 3 mg/dL (7-17); Calcium 8.4 mg/dL (8.4-10.2); Hemolysis Index 13
[2018-02-12 15:55] VITALS: BP 105/64
--- NOTE | 2018-02-12 16:46 | Discharge Summary ---
Providers - Providers Date of Admission: 02/09/18 09:41 Date of discharge: 02/12/18 Attending physician: DEANGELO VALDEZ MD 02/09/18 11:39 Consult to Dietitian/Nutrition [CONS] Routine Physician Instructions: Reason For Exam: Reason for Consult: hyper grav Reason for Consult: hyperemesis 02/11/18 16:10 psychiatry consult [Consult to Mental Health] [CONS] Urgent Reason For Exam: Flat Afflect Place consult to:: N/A Notified:: N/A Primary care physician: RUBY ENGINEER Hospitalization Reason for admission: observation (iup at 8 wks with N/V of ) Discharge diagnosis: other (IUP at 8 wks with N/V of for observation) Hospital course: Patient was admitted for observation 48 hrs ago. She is a 17 year old who at 9 weeks gestation. She presented to the ER with nausea, vomiting with inability to keep PO intake, productive cough x 2 weeks. Her labs showed metabolic acidosis, low K+, ketones and UTI. She was treated with zithromax, albuterol, reglan, potassium replacement, IV hydration. Zosyn was added. She was kept for observation. She is feeling better but is still vomiting when she tries to drink or eat. Potassium is 2.8 today. Was admitted to the floor. She was started on antiemetics and electrolyte were corrected. She was seen by mental health services and cleared Discharged home in stable condition Condition at discharge: Good Disposition: [id number] TO HOME OR SELFCARE - Discharge Diagnoses (1) 9 weeks gestation of Status: Acute (2) Nausea and vomiting during Status: Acute Plan - Discharge Medications Prescriptions: ALBUTEROL Inhaler (OR & NICU) [Proair] 2 puff IH QID PRN #1 inhalation PRN Reason: Shortness Of Breath ALBUTEROL Inhaler(NF) [VENTOLIN Inhaler(NF)] 2 puff IH BID PRN #1 inha PRN Reason: Bronchospasm Azithromycin [Zithromax Z-RICARDO] 0 mg PO DAILY #6 tab Metoclopramide [Reglan] 10 mg PO TID PRN #30 tab PRN Reason: Nausea Ondansetron [Zofran Odt] 4 mg PO Q8HR #30 tab.rapdis - Provider Discharge Summary Activity: routine Diet: other (as for nutrition) Additional instructions: [] Smoking cessation referral if applicable(refer to patient education folder for contact #) [] Refer to [facility]'s [facility] Booklet Call your doctor immediately for: * Fever > 100.5 * Heavy vaginal bleeding ( >1 pad per hour) * Severe persistent headache * Shortness of breath * Reddened, hot, painful area to leg or breast * Drainage or odor from incision. * Keep incision clean and dry at all times and follow doctor's instructions regarding bathing/showering - Follow up plan Follow up: [facility] [Provider Group] - 3-5 Days
== END 2018-02-12 18:30 | disposition home or self-care (01) | DRG 781 ==
LOC: ED 23:39 → OB 02-09 09:41
PROVIDERS: ADMIT Obstetrics & Gynecology; ATTEND Obstetrics & Gynecology
PROC: 4A033R1 Measurement of Arterial Saturation, Peripheral, Percutaneous Approach (ICD-10-PCS; principal; 2018-02-09)
DX: O21.1 Hyperemesis gravidarum with metabolic disturbance (principal); O23.41 Unspecified infection of urinary tract in pregnancy, first trimester; J45.901 Unspecified asthma with (acute) exacerbation; O99.511 Diseases of the respiratory system complicating pregnancy, first trimester; J98.9 Respiratory disorder, unspecified; O26.891 Other specified pregnancy related conditions, first trimester; Z79.899 Other long term (current) drug therapy; Z3A.09 9 weeks gestation of pregnancy
CPT/HCPCS: 36415; 71045; 76801; 76817; 80048; 80053; 80074; 80307; 81001; 82010; 82140; 82803; 82805; 83735; 84702; 85025; 85379; 85610; 85730; 87040; 87086; 93005; 93010; 94640; J0696; J2405; J2543; J2765; J3411; J3480; J7030; J7042; Q0162

== ENCOUNTER 2018-06-14 01:24 | Outpatient (CLI) | payer MEDICAID ==
[2018-06-14] MEDS ORDERED: LACTATED RINGERS 1,000 ML IV ONE (02:08)
[2018-06-14 03:43] VITALS: BP 117/66
[2018-06-14 04:11] LABS: Bacteria,Urine 1+ /HPF (Negative); Bilirubin,Urine NEG (Negative); Blood,Urine NEG (Negative); Color,Urine Amber (Yellow); Hyaline Casts,Urine 2 /LPF; Mucus,Urine 3+ /HPF
[2018-06-14] MEDS ORDERED: XYLOCAINE 1% MPF 5 mL INFILTRATI ONE (04:37)
[2018-06-14] MEDS ORDERED: ROCEPHIN IM ONE (04:37)
== END 2018-06-14 05:36 | disposition home or self-care (01) ==
LOC: TRG 01:24
PROVIDERS: ATTEND Obstetrics & Gynecology
DX: O26.893 Other specified pregnancy related conditions, third trimester (principal); O99.513 Diseases of the respiratory system complicating pregnancy, third trimester; J45.909 Unspecified asthma, uncomplicated; Z3A.30 30 weeks gestation of pregnancy
CPT/HCPCS: 59025; 81001; 96360; 96372; J0696; J7120

== ENCOUNTER 2018-06-28 16:26 | Outpatient (CLI) | payer MEDICAID ==
[2018-06-28] MEDS ORDERED: LACTATED RINGERS 500 ML IV ONE (17:23)
[2018-06-28 17:31] VITALS: BP 105/65
[2018-06-28] MEDS ORDERED: FLAGYL PO ONE (17:48)
[2018-06-28 18:08] LABS: Bacteria,Urine 1+ /HPF (Negative); Bilirubin,Urine NEG (Negative); Blood,Urine NEG (Negative); Color,Urine Yellow (Yellow); Mucus,Urine FEW /HPF; Protein,Urine <15 mg/dL mg/dL (Negative); Urobilinogen,Urine < 2.0 mg/dL (<2.0)
[2018-06-28 18:14] LABS: Amphetamine Screen,Urine PRESUMPTIVE NEGATIVE; Benzodiazepines Screen,Urine PRESUMPTIVE NEGATIVE; Cannabinoid Screen,Urine PRESUMPTIVE NEGATIVE; Cocaine Screen,Urine PRESUMPTIVE NEGATIVE; Methadone Screen,Urine PRESUMPTIVE NEGATIVE; Opiate Screen,Urine PRESUMPTIVE NEGATIVE
--- NOTE | 2018-06-28 20:16 | Ultrasound Report ---
FINAL REPORT PROCEDURE: Obstetrical ultrasound. TECHNIQUE: Real-time sonography performed for focused follow-up or re-evaluation of each size/ growth parameters and amniotic fluid or re-evaluation of suspected or confirmed abnormality on prior imaging. CPT 34977 HISTORY: labor. COMPARISON: Obstetrical ultrasound 02/09/2018. FINDINGS: There is a single viable fetus in cephalic presentation. Cardiac activity is documented at 145 beats per minute. The amniotic fluid volume appears normal. The amniotic fluid index measures 12.6 centimet ers. The placenta is anterior in location with no evidence of placenta previa. Measured paramet ers are as follows: Biparietal diameter 7.6 centimeters, head circumference 26.9 centimeters, abdomin al circumference 23.7 centimeters, femur length 6.0 centimeters. The calculated menstrual age is 29 w eeks 5 days. The estimated date of confinement is 09/08/2018. Estimated weight is currently 138 0 grams. IMPRESSION: Viable intrauterine fetus in cephalic presentation with a menstrual age of 29 weeks 5 days.
--- NOTE | 2018-06-28 21:16 | Event Note ---
Date: 06/28/18 18 year old sent to L&D triage from [facility] office for ultrasound and to receive treatment for trichomonas. EDC 09/12/18. EGA 29 1/7 weeks gestation. Patient states she was seen in [facility] office today and had previously missed several of her appointments. She states she was told that her fundal height was low for dates and so was sent here to L&D triage for an ultrasound. US done here in L&D today is consistent with dates, reporting an EGA of 29 weeks, 5 days gestation and an EDC of 09/08/18. Patient reports active movement. She denies contractions, leaking of fluid, or vaginal bleeding. EFM shows no contractions and heart rate 145 bpm AGA. Abdomen is soft, and and nontender and size consistent with dates. She reports she was told in the office today that she has trichomonas and was told she would receive treatment here in L&D. Flagyl 2 gram oral dose was given to patient in triage today; patient tolerated the medication well. Advised patient to avoid intercourse; advised patient that her partner must also be treated. Patient also states she was treated in the office today for UTI. She denies flank pain, fever or chills, nausea or vomiting. Daily movement counting, nutrition, warning signs of late , and signs of PTL discussed with patient. Advised patient to perform movement count daily. Advised patient to keep her follow up appointment with [facility] on Sunday07/01/18. Advised patient not to miss any more appointments. Patient voiced understanding.
== END 2018-06-28 20:18 | disposition home or self-care (01) ==
LOC: TRG 16:26
PROVIDERS: ATTEND Obstetrics & Gynecology
DX: O47.03 False labor before 37 completed weeks of gestation, third trimester (principal); O99.513 Diseases of the respiratory system complicating pregnancy, third trimester; J45.909 Unspecified asthma, uncomplicated; Z3A.32 32 weeks gestation of pregnancy
CPT/HCPCS: 59025; 76816; 80307; 81001